=== PATIENT | female | born 1995 | race Caucasian/White ===

== ENCOUNTER 2019-03-31 07:02 | Inpatient (IN) ==
[2019-03-31] MEDS ORDERED: ONDANSETRON 4 MG/2 ML VIAL IV PRN ×2 (07:12→18:48)
[2019-03-31] MEDS ORDERED: LACTATED RINGERS 500 ML IV PRN (07:12)
[2019-03-31] MEDS ORDERED: BUTORPHANOL 2 MG/ML VIAL IV PRN (07:12)
[2019-03-31] MEDS: LACTATED RINGERS 1,000 ML IV SCH ×4 (07:25→10:36)
[2019-03-31] MEDS ORDERED: OXYTOCIN/LR 20 UNIT/1,000 ML BAG IV SCH (07:30)
[2019-03-31] MEDS ORDERED: CITRIC ACID/SODIUM CITRATE 30 ML UDCUP PO ONE (07:40)
[2019-03-31] MEDS ORDERED: NALOXONE 0.4 MG/ML VIAL IV PRN (07:40)
[2019-03-31] MEDS ORDERED: PROMETHAZINE 25 MG/1 ML VIAL IM PRN (07:40)
[2019-03-31] MEDS ORDERED: hydrOXYzine HCL 25 MG/1 ML VIAL IM PRN (07:40)
[2019-03-31] MEDS ORDERED: FAMOTIDINE 20 MG/2 ML VIAL IV ONE (07:40)
[2019-03-31] MEDS ORDERED: diphenhydrAMINE 50 MG/1 ML VIAL IV PRN ×2 (07:40)
[2019-03-31 07:42] LABS: Basophils % 0.3 % (0.0-0.8); Eosinophils # 0.1 10*3/uL (0.0-0.87); Eosinophils % 1.6 % (0.00-10.9); Hematocrit 35.3 VOL% (35.7-47.0); Hemoglobin 11.5 GM/DL (12.0-16.0); Immature Granulocytes Absolute 0.09 #; Lymphocytes % 22.5 % (21.3-54.2); Mean Corpuscular HGB Conc 32.6 GM/DL (32-36); Mean Corpuscular Volume 96.7 FL (87-102); Mean Platelet Volume 10.4 FL (9.6-12.0); Monocytes % 6.6 % (1.7-12.7); Platelet Count 191 T/CUMM (130-400); Red Blood Count 3.65 MC/CUMM (3.8-5.5); Red Cell Distribution Width 14.2 % (9.3-17.3); White Blood Count 8.9 T/CUMM (4-12)
[2019-03-31] MEDS ORDERED: fentaNYL 2 MCG/ROPIV 0.2% EPID 100 ML EPIDURAL SCH (08:00)
[2019-03-31] MEDS ORDERED: PHENYLEPHRINE 1 MG/10 ML SYRINGE IV ONE (08:48)
[2019-03-31] MEDS: ePHEDrine 50 MG/ML AMP IV PRN ×2 (08:52→08:57)
[2019-03-31] MEDS ORDERED: ePHEDrine 50 MG/ML AMP IV ONE ×2 (08:55→09:33)
[2019-03-31 10:06] LABS: Apearance,Urine CLEAR (Clear); Bilirubin,Urine Negative (Negative); Blood, Urine Negative (Negative); Glucose,Urine (UA) Negative (Negative); Ketones,Urine Negative (Negative); Mucus,Urine Occasional /LPF (Occasional); Nitrite,Urine Negative (Negative); Protein,Urine Negative; Urine Color Straw (Yellow); Urine Specific Gravity 1.003 (1.001-1.035); Urine Urobilinogen < 2.0 EU/DL (0.2-1.0); WBC,Urine <1 /HPF (0-6)
[2019-03-31] MEDS ORDERED: METHYLERGONOVINE 0.2 MG/1 ML AMP ONE (16:15)
[2019-03-31] MEDS ORDERED: TRANEXAMIC ACID 1,000 MG/10 ML VIAL ONE (16:15)
[2019-03-31] MEDS ORDERED: CARBOPROST TROMETHAMINE 250 MCG/ML AMP IM ONE (16:15)
[2019-03-31] MEDS ORDERED: miSOPROStol 200 MCG TABLET ONE (16:15)
[2019-03-31] MEDS ORDERED: LIDOCAINE MPF 2% /EPI 20 ML VIAL ONE (17:02)
[2019-03-31] MEDS ORDERED: fentaNYL 100 MCG/2 ML VIAL ONE (17:02)
[2019-03-31] MEDS ORDERED: LIDOCAINE 1% 50 ML VIAL ONE (17:40)
[2019-03-31] MEDS ORDERED: BENZOCAINE 20%/MENTHOL 0.5% SPRAY 56 GM CAN TOP PRN (18:48)
[2019-03-31] MEDS ORDERED: DIPH/TET/ACEL PERT BOOSTER VACCINE 0.5 ML VIAL IM ONE (18:48)
[2019-03-31] MEDS ORDERED: MEASLES/MUMPS/RUBELLA VACCINE 0.5 ML VIAL SUBCUT ONE (18:48)
[2019-03-31] MEDS ORDERED: RHO(D) IMMUNE GLOBULIN 300 MCG SYRINGE IM ONE (18:48)
[2019-03-31] MEDS ORDERED: oxyCODONE/ACETAMINOPHEN 5-325 MG TABLET PO PRN (18:48)
[2019-03-31] MEDS ORDERED: OXYTOCIN/LR 20 UNIT/1,000 ML BAG IV ONE (18:48)
[2019-03-31] MEDS ORDERED: HYDROCORTISONE 2.5% RECTAL CREAM 30 GM TUBE TOP PRN (18:48)
[2019-03-31] MEDS ORDERED: BISACODYL 10 MG SUPP RECTAL PRN (18:48)
[2019-03-31] MEDS ORDERED: ACETAMINOPHEN 325 MG TABLET PO PRN (18:48)
[2019-03-31] MEDS ORDERED: LANOLIN 50% CREAM 0.3 OZ TUBE TOP PRN (18:48)
[2019-03-31] MEDS ORDERED: WITCH HAZEL PADS 100/JAR TOP PRN (18:48)
[2019-03-31] MEDS: DOCUSATE SODIUM 100 MG CAPSULE PO SCH (22:52)
[2019-03-31] MEDS: IBUPROFEN 800 MG TABLET PO PRN (23:13)
[2019-04-01 05:31] LABS: Basophils # 0.1 10*3/uL (0.0-0.2); Basophils % 0.5 % (0.0-0.8); Eosinophils # 0.2 10*3/uL (0.0-0.87); Eosinophils % 1.1 % (0.00-10.9); Hematocrit 31.1 VOL% (35.7-47.0); Hemoglobin 10.1 GM/DL (12.0-16.0); Immature Granulocytes % 0.5 %; Immature Granulocytes Absolute 0.07 #; Lymphocytes # 2.6 10*3/uL (1.4-4.0); Lymphocytes % 18.7 % (21.3-54.2); Mean Corpuscular HGB Conc 32.5 GM/DL (32-36); Mean Platelet Volume 10.6 FL (9.6-12.0); Monocytes % 6.5 % (1.7-12.7); Neutrophils % 72.7 % (38.7-73.9); Platelet Count 155 T/CUMM (130-400); Red Blood Count 3.14 MC/CUMM (3.8-5.5); Red Cell Distribution Width 14.3 % (9.3-17.3)
[2019-04-01] MEDS: IBUPROFEN 800 MG TABLET PO PRN ×2 (08:26→19:56)
[2019-04-01] MEDS: DOCUSATE SODIUM 100 MG CAPSULE PO SCH ×2 (08:26→20:31)
[2019-04-01] MEDS: oxyCODONE/ACETAMINOPHEN 5-325 MG TABLET PO PRN (08:28)
[2019-04-02] MEDS: DOCUSATE SODIUM 100 MG CAPSULE PO SCH (08:18)
[2019-04-02] MEDS: oxyCODONE/ACETAMINOPHEN 5-325 MG TABLET PO PRN (08:18)
[2019-04-02] MEDS: IBUPROFEN 800 MG TABLET PO PRN (08:19)
[2019-04-02 08:47] VITALS: BP 123/79
== END 2019-04-02 11:15 | disposition home or self-care (01) | DRG 807 ==
LOC: N.LDOUT 07:02 → N.LD 07:03 → N.OB 22:50
PROVIDERS: ADMIT Obstetrics & Gynecology; ATTEND Obstetrics & Gynecology